=== PATIENT | female | born 1995 | race Caucasian/White ===

== ENCOUNTER → 2023-11-11 | Outpatient (CLI) | payer OTHER, SELFPAY ==
[2023-11-14 07:08] LABS: Chlamydia By Nucleic Acid AMP Negative (Negative); Gonococcus By Nucleic Acid AMP Negative (Negative)
[2023-11-15 17:24] LABS: HPV Reflexed? NOT INDICATED
== END | disposition home or self-care (01) ==
LOC: LABSPEC 16:21
PROVIDERS: Referring Provider Nurse Practitioner Women's Health; Visit Provider Nurse Practitioner Women's Health
DX: Z11.3 Encounter for screening for infections with a predominantly sexual mode of transmission (principal); Z12.4 Encounter for screening for malignant neoplasm of cervix
CPT/HCPCS: 87491; 87591; 88175; G0145

== ENCOUNTER 2025-02-23 10:43 | Day surgery (SDC) | payer OTHER, SELFPAY ==
--- NOTE | 2025-02-17 15:04 | PAT.ANE_ITS ---
Pre-Assessment Diagnosis/Proposed Procedure Planned Operative Procedure(s): HYMENECTOMY Anesthesia History Anesthesia History - media production support manager: Anesthesia History - media production support manager Hx Hospitalization No 02/11/25 08:12 Any Problems With Anesthesia No 02/11/25 08:12 Cholinesterase deficiency No 02/11/25 08:12 You/Your Family Experience No 02/11/25 08:12 fever (hyperthermia) with Relationship Recent Exposure to Contagious Disease Does patient have nerve No 02/11/25 08:12 stimulator Patient instructed to have device shut off --Does patient have Pacemaker or ICD? When Was Last Pacemaker Check QUESTION #4 FULL TEXT: You/Your Family Experience fever (hyperthermia) with Anesthesia Last Oral Intake Last Oral intake: Last Oral Intake NPO since Meds taken in AM with sips of water? Meds patient instructed to take am of surgery PONV PONV - media production support manager: PONV - media production support manager Female Yes 02/11/25 08:12 HX of Motion Sickness Yes 02/11/25 08:12 HX of N/V After Surgery No 02/11/25 08:12 Non-Smoker Yes 02/11/25 08:12 Duration of Surgery greater No 02/11/25 08:12 than 60 minutes Number of Risk Factors 3 02/11/25 08:12 PONV Score Moderate Risk 02/11/25 08:12 Height & Weight Height & Weight: Anesthesia: Height & Weight Height 5 ft 6 in 02/10/25 09:34 Respiratory Assessment Respiratory Assessment - media production support manager: Respiratory Tract Infection Hx - media production support manager Hx Respiratory Tract Infection No 02/11/25 08:12 STOP Sleep Apnea STOP Sleep Apnea - media production support manager: STOP Sleep Apnea - media production support manager Hx Hypertension No 02/11/25 08:12 Hx Sleep Apnea No 02/11/25 08:12 CPAP BIPAP Do you snore loudly (louder No 02/11/25 08:12 than talking or can be heard Do you often feel tired/ No 02/11/25 08:12 fatigued/ sleepy during daytime? Has anyone observed you stop No 02/11/25 08:12 breathing during sleep? STOP Results Negative 02/11/25 08:12 QUESTION #5 FULL TEXT : Do you snore loudly (louder than talking or can be heard through closed doors)? 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 Specify any problems Hx of Preganancy in last 3 No 02/11/25 08:12 Months Nurse Filling Out Transfusion DSCHRIBER 02/11/25 08:12 & Questions: Date: 02/11/25 02/11/25 08:12 Time: 08:13 02/11/25 08:12 Patient unable to answer at this time (ie. confused, unrespo /Reproduction History /Reproductive History - media production support manager: /Reproductive Hx- media production support manager Hx Now No 02/11/25 08:12 Gestational Age (in weeks): EDC: Hx Hx Para Hx Section SAB No 02/11/25 08:12 PFSH Medical History Anxiety Migraine headache Seizures Gastric reflux Non-smoker Cardiology follow-up encounter History of irregular heartbeat Hydrocephalus Allergy/AdvReac Type Severity Reaction Status Date / Time No Known Allergies Allergy Verified 02/11/25 08:08 Family History Grandmother Breast cancer Grandfather Cancer bladder Surgical History History of brain shunt Social History number of children: 0 current occupational status: employed current occupation: [employer] Smoking Status: Never smoker alcohol intake: never substance use type: does not use seatbelt use: always do you feel safe at home: Yes additional social history: Girlfriend- Leanne Audit: Pertinent Findings Pertinent Findings EKG Perinent findings: March 07, 2024. Sinus tachycardia at 122 bpm. Recommendation Anesthesia Recommendation Anesthesia recommendation: OPTIMIZED for anesthesia
[2025-02-23] VITALS (9 sets, daily range): BP systolic 98–149; BP diastolic 67–114; PULSE 84–99; RESP 14–18; TEMP 36.2–36.9; O2SAT 98–100; BMI 41.3
[2025-02-23 11:37] LABS: Hematocrit 41.3 % (37-47); Hemoglobin 13.7 g/dL (12.0-15.0); Mean Corp Hgb Conc 33.2 g/dL (32-36); Mean Corpuscular Hgb 30.8 pg (27.0-32.0); Mean Corpuscular Volume 92.8 fL (81-99); Mean Platelet Vol. 9.5 fl (6.2-12.0); Platelet Count 254 K/mm3 (150-450); RBC Distribution Width CV 12.5 % (11.6-14.6); RBC Distribution Width SD 42.9 fl (35.1-43.9); Red Blood Count 4.45 M/mm3 (4.2-5.4); White Blood Count 6.7 K/mm3 (4.4-11.0)
--- NOTE | 2025-02-23 11:47 | HP.PCM_ITS ---
History and Physical Date of Admission: 02/23/25 Intake Vital Signs 11/17/2415:13 12/28/2510:31 02/04/2516:05 02/04/2516:07 Height 5 ft 6 in 5 ft 6 in 5 ft 6 in 5 ft 6 in Weight: 222 lb 252 lb 4 oz BMI 35.8 40.7 BP 114/76 126/83 H Intake Visit Reasons: Discuss hymenectomy Bee Raiser Required: No Is patient in pain?: No Allergies No Known Allergies Allergy (Verified 02/03/25 16:05) Medications ?Medication ?Instructions ?Recorded ?Confirmed ?Type cholecalciferol (vitamin D3) 50 50 mcg PO DAILY 11/11/23 02/03/25 Histor y mcg (2,000 unit) capsule Post menopausal: No Patient : No : No PFSH Family History Grandmother Breast cancerGrandfather Cancer bladder Social History number of children: 0 current occupational status: employed current occupation: [employer] Smoking Status: Never smoker alcohol intake: never substance use type: does not use seatbelt use: always do you feel safe at home: Yes additional social history: Girlfriend- Leanne HPI Discuss hymenectomy Details: BETSY MORTON is a 29 year old who presents today with her partner to discuss her intact hymen that is causing extreme pain with tampon insertion and inability to be sexually active. She has tried home vaginal dilators without success. History 0 Elective abortions Hx Para Spontaneous abortions Hx # Term Pregnancies Ectopic pregnancies Hx # Pregnancies Multiple births # of living children ROS Const ROS Unobtainable: All systems reviewed & are unremarkable except as noted in H Resp Resp: Reports system reviewed and no additional complaints, except as documented; Denies cough GI GI: Reports as per HPI Psych Psych: Reports system reviewed and no additional complaints, except as documented Exam Const General: cooperative, healthy appearing, comfortable and no acute distress Resp Effort & Inspection: normal respiratory effort External Female Exam: normal appearance of the urethra Urethra: normal appearance of the urethra Speculum Exam - Vagina: other (hymen is very thick and open about 1.5 cm. It does stretch to about 2.5 cm ) Genitals/ Introitus (F): 1. 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 I have discussed with the patient the risks, benefits, and alternatives of the procedure which include but are not limited to risks of anesthesia, bleeding, infection, possible damage to bowel, bladder, or surrounding vasculature which could lead to additional surgery to evaluate any complications. Patient agrees to procedure and wishes to proceed. ACOG/uptodate references given for additional information regarding procedure. plan for hymenectomy at her convenienc
[2025-02-23 11:49] LABS: Internal QC Validated? YES +Cl - CLEAR BKGD
[2025-02-23 11:50] LABS: Pregnancy, Urine Negative Negative; Record Kit Lot#,Urine Preg 899023
--- NOTE | 2025-02-23 11:58 | PRE.ANES_ITS ---
ASA Classification* ASA Classification ASA Classification: 3 Assessment & Plan Anesthesia* Anesthesia Assessment Anesthesia Assessment: Discussed sedation and/or anesthesia options, risks, benefits, and alternatives with patient/parents/legal guardian/POA. Questions invited. The patient/parents/legal guardian/POA seems to understand and agrees to proceed with anesthesia plan. Reviewed the physical assessment, medical history, allergy history and patient home medications list prior to surgery/procedure/anesthetic and documented any changes. Performed airway and anesthesia risk assessments. Anesthesia Type Anesthesia Type: MAC History Source History Obtained from:: Patient and Chart Anesthesia Focused Assessment* Temperature: 98.4 F Pulse Rate: 84 Blood Pressure: 133/80 Respiratory Rate: 16 Pulse Ox: 100 Oxygen Delivery Method: Room Air Airway Assessment Mouth opens: >3 cm Mallampati Score: IV Teeth Condition: Intact Neck Range of motion (ROM): Full ROM Focused Labs Anesthesia Preop lab: CBC WBC 6.7 K/mm3 (4.4-11.0) 02/23/25 11:30 02/23/25 RBC 4.45 M/mm3 (4.2-5.4) 02/23/25 11:30 02/23/25 Hgb 13.7 g/dL (12.0-15.0) 02/23/25 11:30 02/23/25 Hct 41.3 % (37-47) 02/23/25 11:30 02/23/25 Plt Count 254 K/mm3 (150-450) 02/23/25 11:30 02/23/25 CHEMISTRY COAG Urine Test Negative Negative 02/23/25 10:55 02/23/25 Pre-Assessment Diagnosis/Proposed Procedure Planned Operative Procedure(s): HYMENECTOMY Anesthesia History Anesthesia History - nutritional services host: Anesthesia History - nutritional services host Hx Hospitalization No 02/11/25 08:12 Any Problems With Anesthesia No 02/11/25 08:12 Cholinesterase deficiency No 02/11/25 08:12 You/Your Family Experience No 02/11/25 08:12 fever (hyperthermia) with Relationship Recent Exposure to Contagious No 02/23/25 11:06 Disease Does patient have nerve No 02/11/25 08:12 stimulator Patient instructed to have device shut off --Does patient have Pacemaker No 02/23/25 11:06 or ICD? When Was Last Pacemaker Check QUESTION #4 FULL TEXT: You/Your Family Experience fever (hyperthermia) with Anesthesia Last Oral Intake Last Oral intake: Last Oral Intake NPO since 00:00 02/23/25 11:06 Meds taken in AM with sips of No 02/23/25 11:06 water? Meds patient instructed to take am of surgery PONV PONV - nutritional services host: PONV - nutritional services host Female Yes 02/11/25 08:12 HX of Motion Sickness Yes 02/11/25 08:12 HX of N/V After Surgery No 02/11/25 08:12 Non-Smoker Yes 02/11/25 08:12 Duration of Surgery greater No 02/11/25 08:12 than 60 minutes Number of Risk Factors 3 02/11/25 08:12 PONV Score Moderate Risk 02/11/25 08:12 Height & Weight Height & Weight: Anesthesia: Height & Weight Height 5 ft 6 in 02/23/25 11:06 Weight: 116 kg 02/23/25 11:06 Body Mass Index (BMI) 41.3 02/23/25 11:06 Respiratory Assessment Respiratory Assessment - nutritional services host: Respiratory Tract Infection Hx - nutritional services host Hx Respiratory Tract Infection No 02/11/25 08:12 STOP Sleep Apnea STOP Sleep Apnea - nutritional services host: STOP Sleep Apnea - nutritional services host Hx Hypertension No 02/11/25 08:12 Hx Sleep Apnea No 02/11/25 08:12 CPAP BIPAP Do you snore loudly (louder No 02/11/25 08:12 than talking or can be heard Do you often feel tired/ No 02/11/25 08:12 fatigued/ sleepy during daytime? Has anyone observed you stop No 02/11/25 08:12 breathing during sleep? STOP Results Negative 02/11/25 08:12 QUESTION #5 FULL TEXT : Do you snore loudly (louder than talking or can be heard through closed doors)? 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 Specify any problems Hx of Preganancy in last 3 No 02/11/25 08:12 Months Nurse Filling Out Transfusion DSCHRIBER 02/11/25 08:12 & Questions: Date: 02/11/25 02/11/25 08:12 Time: 08:13 02/11/25 08:12 Patient unable to answer at this time (ie. confused, unrespo /Reproduction History /Reproductive History - nutritional services host: /Reproductive Hx- nutritional services host Hx Now No 02/11/25 08:12 Gestational Age (in weeks): EDC: Hx Hx Para Hx Section SAB No 02/11/25 08:12 PFSH Medical History Anxiety Migraine headache Seizures Gastric reflux Non-smoker Cardiology follow-up encounter History of irregular heartbeat Hydrocephalus Allergy/AdvReac Type Severity Reaction Status Date / Time No Known Allergies Allergy Verified 02/23/25 11:05 Family History Grandmother Breast cancer Grandfather Cancer bladder Surgical History History of brain shunt Social History number of children: 0 current occupational status: employed current occupation: [employer] Smoking Status: Never smoker alcohol intake: never substance use type: does not use seatbelt use: always do you feel safe at home: Yes additional social history: Girlfriend- Leanne Review of Systems (Anesthesia) ROS Narrative System reviewed and no additional complaints, except as documented.
--- NOTE | 2025-02-23 12:15 | SOF_PTH ---
PATIENT: JANNIE MORTON LOC: [facility] – [place] U#:[id number] AGE/SX: 29/F ROOM: RE02/23/[address]: Dr. Ida Ariza DO : 1995 BED: DIS: 02/23/2025 SPEC #: [id number] RECD: 02/24/25 09:27 STATUS: MARGARITA CYNTHIA #: [id number] MARIA TERESA: 02/23/25 12:[address]: Ida Ariza DEPT: SURGICAL PATHOLOGY RECD BY: Yosi Box ENTERED: 02/24/25 09:28 SP TYPE: SOFT TISS OTHR DR: No Primary Care Phys Tissues: A - Vagina, NOS Procedures: Surgery Specimen Level III HEADER OPERATION: Hymenectomy PRE-OP DIAGNOSIS: Partial imperforate hymen TISSUE SUBMITTED: A- Vaginal tissue MICROSCOPIC DIAGNOSIS A. VAGINA, HYMENECTOMY: * BENIGN SQUAMOUS MUCOSA, WELL GLYCOGENATED, WITH MILD CHRONIC INFLAMMATION. - MICROSCOPIC DESCRIPTION Slides are reviewed. GROSS DESCRIPTION A. Received in formalin labeled, Jannie Morton, and designated vaginal tissue, are three goldstein-tirado, elongated, wrinkled, mucosal tissue fragments that aggregate to 2.2 x 1.5 x 0.5 cm. From smallest to largest, the margins are inked blue, green, and black respectively. Each fragment is longitudinally bisected and entirely submitted in one cassette. MYRANDA 02/24/2025 CPT:[id number]
[2025-02-23] MEDS: Vasopressin 20 UNITS/ML Vial (13:15)
[2025-02-23] MEDS: Lidocaine 1% (20 ml mdv) 20 ML Vial (13:40)
--- NOTE | 2025-02-23 14:00 | PCM.POST.ANE ---
Anesthesia: Postop Eval I Current Vital Signs Temperature: 97.6 F Pulse Rate: 92 Blood Pressure: 149/98 Respiratory Rate: 18 Pulse Ox: 99 Oxygen Delivery Method: Room Air Assessment Airway patent: Yes Spontaneous unlabored respirations: Yes Mental status: Awake and Calm nausea: No Vomiting: No Anesthesia Complication: No Fluid Hydration Crystalloid volume administer (ml): 10 Total IV fluid infused: 10 Progress Note Anesthesia document: Postop Eval 1 completed: Yes
--- NOTE | 2025-02-23 14:08 | PCM.DC ---
Discharge Instructions Diet Discharge Diet: No restrictions DC O2, CPAP, BIPAP needs Home O2 Discharge instructions: No Dressing / Incision Discharge Activity: May Shower Return to work on:: 02/25/25 May resume sexual activity in: 6 weeks Weight Bearing Status: Weight bearing as tolerated Lifting Restrictions: no restrictions Additional Activity Instructions:: no running, biking, rowing, hiking Dressing / Incision Call your doctor if your incision/area has: Sudden Increased Bleeding, Increased Pain/ Swelling and Foul Smelling Discharge Call your doctor if you observe: Fever of 101 or Higher, Inability to urinate, Dizziness, Fainting spells, Calf discomfort and Uncontrolled pain Additional Dressing/Incision Instructions:: wear a clean panty liner and change every time using the restroom. Wipe gently from front to back and use feminine body wipes Follow Up Care Test Results: Test results from this visit will be discussed in further detail at your follow-up appointment, if applicable. Discharge Plan Admission Primary Reason for Your Visit: hymenectomy Attending Provider: Ida Ariza Primary Care Provider: Care Physician,Lia Primary Instructions Print Language: Nepalese Discharge Orders/Prescriptions Prescriptions: New estradiol 0.01 % (0.1 mg/gram) cream 0.25 appful vaginal DAILY Qty: 42.5 0RF Rx Instructions: use a pea size amount to the vaginal area before bed daily ibuprofen 800 mg tablet 800 mg PO Q8H PRN (Reason: pain) Qty: 30 0RF Referrals / Follow Up: Care Physician,No Primary [Primary Care Provider] - Disposition Disposition (needs filled in before D/C Order can be placed): Home, Self Care
--- NOTE | 2025-02-23 14:15 | PCM.OPRPT ---
Problems Associated Problem List Diagnoses (1) Intact hymenal ring: (2) Vaginal pain: Multi Select Codes Urinary/Genital Urinary/Genital CPT Codes: 84057 PARTIAL HYMENECTOMY OR REVISION Operative Report (Standard) Operative Information Date of Procedure: 02/23/25 Pre-Operative Diagnosis: intact hymen, vaginal pain Post-Operative Diagnosis: intact hymen, vaginal pain Surgery/Procedure Performed: hymenectomy packager or packer and weigher: No Type of Anesthesia: Local MAC RN Documented Start/Stop Times: Operation Date: 02/23/25 12:15 Case Time Into Pre-Op 02/23/25 10:54 Out of Pre-Op 02/23/25 12:54 Anesthesia Start 02/23/25 12:57 Into Room 02/23/25 12:57 Procedure Start 02/23/25 13:15 Procedure End 02/23/25 13:45 Anesthesia End 02/23/25 13:53 Out of Room 02/23/25 13:53 Into Recovery 02/23/25 13:57 Procedure Start Time: 13:15 Procedure Stop Time: 13:53 Select all DRAINS/GRAFTS/IMPLANTS that apply: None Estimated Blood Loss: 5cc Specimen collected: Yes Description of specimen(s) removed: vaginal tissue Description of surgery: The patient was brought to the operating room and MAC anesthesia was found to be adequate. She was prepped and draped in the normal sterile fashion her legs were placed in stirrups. The hymenal ring was noted to be thick and the vaginal opening very small. The hymenal ring was injected with 1% lidocaine with dilute vasopressin. The hymen was grasped with hemostats at the 1 o'clock position. The lower portion of the hymen was held with an Allis clamp at the 5 o'clock position. The hymen was excised with a Metzenbaum scissors leaving a margin of outer vestibular tissue and inner vaginal tissue. The vaginal and vestibular margins were sutured together using a 3-0 Monocryl interrupted suture. An identical procedure was performed on the opposite side. The wound was irrigated with normal saline and observed to be hemostatic. The patient tolerated the procedure well sponge lap and needle counts were correct x 2 and she is now being brought to the recovery room in stable condition. Surgical Findings: Thickened hymenal ring. Complications Complications: No Admit VTE Documentation VTE Present on Admission: No VTE Mechan Device Prophylaxis: SCD's VTE Pharm Prophylaxis ordered?: No
--- NOTE | 2025-02-23 19:32 | POSTOPAN2_ITS ---
Anesthesia Postop Eval I Sum Postop Eval Completion status Anesthesia document: Postop Eval 1 completed: Yes Anesthesia Postop Eval I Summary Anesthesia Postop Eval I Summary: Anesthesia Postop Eval I: Assessment Summary Airway patent Yes 02/23/25 14:01 EVALUATION ANALYST.HERNÁNOBAbdelrahman Spontaneous unlabored Yes 02/23/25 14:01 EVALUATION ANALYST.CHARLES respirations Mental status Awake,Calm 02/23/25 14:01 EVALUATION ANALYST.CHARLES nausea No 02/23/25 14:01 EVALUATION ANALYST.CHARLES Vomiting No 02/23/25 14:01 EVALUATION ANALYST.CHARLES Anesthesia Postop Eval I: Fluid Summary Crystalloid volume administer 10 02/23/25 14:01 EVALUATION ANALYST.HERNÁNOBY (ml) Colloids volume administered ( ml) Blood Product volume administered (ml) Total IV fluid infused 10 02/23/25 14:01 EVALUATION ANALYST.CHARLES Anesthesia Postop Eval I: Summary Notes Anesthesia Complication No 02/23/25 14:01 EVALUATION ANALYST.CHARLES Anesthesia Complication Comment: Post-operative progress note Anesthesia: Postop Eval II Evaluation Mental status: Awake and Calm Pain Level: 1 nausea: No Vomiting: No
--- NOTE | 2025-02-23 19:32 | PCM.POSTANE2 ---
Anesthesia Postop Eval I Sum Postop Eval Completion status Anesthesia document: Postop Eval 1 completed: Yes Anesthesia Postop Eval I Summary Anesthesia Postop Eval I Summary: Anesthesia Postop Eval I: Assessment Summary Airway patent Yes 02/23/25 14:01 DEVELOPMENT SYSTEM EFFICIENCY MANAGER.HERNÁNOBAbdelrahman Spontaneous unlabored Yes 02/23/25 14:01 DEVELOPMENT SYSTEM EFFICIENCY MANAGER.CHARLES respirations Mental status Awake,Calm 02/23/25 14:01 DEVELOPMENT SYSTEM EFFICIENCY MANAGER.CHARLES nausea No 02/23/25 14:01 DEVELOPMENT SYSTEM EFFICIENCY MANAGER.CHARLES Vomiting No 02/23/25 14:01 DEVELOPMENT SYSTEM EFFICIENCY MANAGER.CHARLES Anesthesia Postop Eval I: Fluid Summary Crystalloid volume administer 10 02/23/25 14:01 DEVELOPMENT SYSTEM EFFICIENCY MANAGER.HERNÁNOBY (ml) Colloids volume administered ( ml) Blood Product volume administered (ml) Total IV fluid infused 10 02/23/25 14:01 DEVELOPMENT SYSTEM EFFICIENCY MANAGER.CHARLES Anesthesia Postop Eval I: Summary Notes Anesthesia Complication No 02/23/25 14:01 DEVELOPMENT SYSTEM EFFICIENCY MANAGER.CHARLES Anesthesia Complication Comment: Post-operative progress note Anesthesia: Postop Eval II Evaluation Mental status: Awake and Calm Pain Level: 1 nausea: No Vomiting: No
== END 2025-02-23 15:29 | disposition home or self-care (01) ==
LOC: SDC 10:46 → AC 10:47
PROVIDERS: Student in an Organized Health Care Education/Training Program; Referring Provider Obstetrics & Gynecology; Visit Provider Obstetrics & Gynecology
PROC: (CPT 56740; principal; 2025-02-23 12:00)
DX: N89.6 Tight hymenal ring (principal); R10.2 Pelvic and perineal pain
CPT/HCPCS: 56700; 00940; 81025; 85027; 86850; 86900; 86901; 88304; A4216; J2405